=== PATIENT | female | born 1995 | race Hispanic/Latino ===

== ENCOUNTER 2018-07-14 23:45 | Observation (INO) | payer OTHER ==
[~2018-07-14] VITALS: Ht 157.5 cm; Wt 61.2 kg
[~2018-07-14 23:45] MED LIST: PREN1COM14 PO
[2018-07-15] MEDS ORDERED: LACTATED RINGERS 1000ML 1,000 ML IV PRN (00:08)
[2018-07-15 00:41] LABS: APPEARANCE,URINE Clear (CLEAR); BILIRUBIN,URINE Negative (NEGATIVE); COLOR,URINE Dark Yellow (YELLOW); GLUCOSE, URINE (UA) Negative (NEGATIVE); KETONES,URINE Negative (NEGATIVE); LEUKOCYTE ESTERASE ,URINE Trace (NEGATIVE); NITRATE,URINE Negative (NEGATIVE); OCCULT BLOOD,URINE Negative (NEGATIVE); PROTEIN,URINE Negative (NEGATIVE)
[2018-07-15 00:51] LABS: RBC,URINE 0-1 /HPF (0-1)
[2018-07-15 00:52] LABS: BACTERIA,URINE Few /HPF (None Seen); SQUAMOUS EPITHELIAL CELL,UR Moderate /HPF (0-2); WBC,URINE 0-1 /HPF (0-1)
== END 2018-07-15 04:15 ==
LOC: EDH 23:45 → LDH 23:46
PROVIDERS: ADMIT Obstetrics & Gynecology; ATTEND Obstetrics & Gynecology
DX: O26.893 Other specified pregnancy related conditions, third trimester (principal); R19.7 Diarrhea, unspecified; O99.513 Diseases of the respiratory system complicating pregnancy, third trimester; J45.909 Unspecified asthma, uncomplicated; O99.343 Other mental disorders complicating pregnancy, third trimester; F32.9 Major depressive disorder, single episode, unspecified; Z3A.31 31 weeks gestation of pregnancy; Z87.891 Personal history of nicotine dependence
CPT/HCPCS: 76805; 76810; 76819 ×2; 81001; 96360; 96361; 99285; G0378 ×4; J7120

== ENCOUNTER 2018-07-25 22:13 | Observation (INO) | payer OTHER ==
[2018-07-25] MEDS ORDERED: LACTATED RINGERS 1000ML 1,000 ML IV SCH (22:30)
[2018-07-25] MEDS ORDERED: LACTATED RINGERS 1000ML 1,000 ML IV ONE (23:20)
[2018-07-26 01:34] LABS: APPEARANCE,URINE Clear (CLEAR); BILIRUBIN,URINE Negative (NEGATIVE); COLOR,URINE Yellow (YELLOW); GLUCOSE, URINE (UA) Negative (NEGATIVE); KETONES,URINE Negative (NEGATIVE); LEUKOCYTE ESTERASE ,URINE Trace (NEGATIVE); NITRATE,URINE Negative (NEGATIVE); OCCULT BLOOD,URINE Negative (NEGATIVE); PROTEIN,URINE Negative (NEGATIVE)
[2018-07-26 01:43] LABS: BACTERIA,URINE Few /HPF (None Seen); RBC,URINE 0-1 /HPF (0-1); SQUAMOUS EPITHELIAL CELL,UR 0-2 /HPF (0-2)
[2018-07-26] MEDS ORDERED: TERBUTALINE SULFATE VIAL 1MG/ML SQ SCH (08:20)
[2018-07-26] MEDS ORDERED: CEFTRIAXONE SODIUM 1 GM IVP ONE (08:20)
[2018-07-26] MEDS ORDERED: CEFTRIAXONE SODIUM 1 GM ONE (08:24)
[2018-07-26] MEDS ORDERED: TERBUTALINE SULFATE VIAL 1MG/ML SQ ONE (08:31)
== END 2018-07-26 10:13 | disposition home or self-care (01) ==
LOC: EDH 22:13 → LDH 22:14
PROVIDERS: ADMIT Obstetrics & Gynecology; ATTEND Obstetrics & Gynecology
DX: O46.93 Antepartum hemorrhage, unspecified, third trimester (principal); O26.893 Other specified pregnancy related conditions, third trimester; R10.2 Pelvic and perineal pain; O99.513 Diseases of the respiratory system complicating pregnancy, third trimester; J45.909 Unspecified asthma, uncomplicated; O99.343 Other mental disorders complicating pregnancy, third trimester; F32.9 Major depressive disorder, single episode, unspecified; Z90.49 Acquired absence of other specified parts of digestive tract; Z87.891 Personal history of nicotine dependence; Z3A.33 33 weeks gestation of pregnancy
CPT/HCPCS: 76805; 81001; 82120; 96372; 99285; G0378 ×12; J0696; J3105; J7120 ×2; 96360; 96361